=== PATIENT | male | born 1980 | race Caucasian/White ===

== ENCOUNTER 2018-04-11 21:25 | Emergency (ER) | payer OTHER ==
[~2018-04-11] VITALS: Ht 175.3 cm; Wt 63.5 kg
[~2018-04-11 21:25] MED LIST: AMOX1TAB5 PO; ANTIVERT 12.5MG TAB PO; BACLOFEN10 MG PO; CARDURA1 MG PO; CEFADROXIL500 MG PO; CIPRO500 MG PO; FOSAMAX5 MG; LEVAQUIN500 MG PO; MACROBID 100 M100 MG PO; PEPCID20 MG PO; SEPTRA DS TABLE1 TAB; TAMSULOSIN HCL0.4 MG; ZANAFLEX4 MG PO
[2018-04-11] MEDS ORDERED: DESOXYN5 MG (22:00)
[2018-04-12] MEDS ORDERED: ALLEGRA-D 12 H1 EACH PO (06:00)
[2018-04-12] MEDS ORDERED: ZYNCOF 20-400120 ML PO (06:00)
[2018-04-12] MEDS ORDERED: ALBUTEROL2.5 MG/3 M IH (06:00)
== END 2018-04-12 06:12 ==
LOC: ER 21:25
DX: J06.9 Acute upper respiratory infection, unspecified (principal)

== ENCOUNTER 2021-04-20 11:00 | Emergency (ER) | payer OTHER ==
[~2021-04-20] VITALS: Ht 175.3 cm; Wt 63.5 kg
[~2021-04-20 11:00] MED LIST changes: +ALBUTEROL2.5 MG/3 M IH; +ALLEGRA-D 12 H1 EACH PO; +DESOXYN5 MG; +ZYNCOF 20-400120 ML PO
[2021-04-20] MEDS ORDERED: BACLOFEN20 MG PO (11:31)
[2021-04-20] MEDS ORDERED: LEVOTHYROXINE50 MCG PO (11:31)
[2021-04-20] MEDS ORDERED: PANTOPRAZOLE SO40 MG PO (11:31)
[2021-04-20] MEDS ORDERED: METHENAMINE HIPP1 GM PO (11:32)
== END 2021-04-20 18:12 | disposition home or self-care (01) ==
LOC: ER 11:00
DX: N39.0 Urinary tract infection, site not specified (principal); B96.89 Other specified bacterial agents as the cause of diseases classified elsewhere; G82.20 Paraplegia, unspecified